=== PATIENT | male | born 2000 | race Caucasian/White ===

== ENCOUNTER 2024-05-01 12:13 | Emergency (ER) | payer SELFPAY ==
[2024-05-01 12:30] VITALS: BP 127/83; PULSE 70; RESP 16; TEMP 97.5; BMI 25.7
== END 2024-05-01 13:52 | disposition home or self-care (01) ==
LOC: JER 12:13
DX: K35.200 Acute appendicitis with generalized peritonitis, without perforation or abscess (principal)
CPT/HCPCS: 99283-25